=== PATIENT | male | born 1960 | race Caucasian/White ===

== ENCOUNTER 2020-05-17 17:11 | Emergency (ER) | payer MEDICARE ==
[~2020-05-17 17:11] MED LIST: CLEOCIN HCL300 MG PO
[2020-05-17 18:49] LABS: HEMOGLOBIN 17.8 gm/dl (14.0-17.5); RED BLOOD COUNT 5.45 M/UL (4.20-5.50); WHITE BLOOD COUNT 8.5 K/UL (4.5-11.0)
[2020-05-17 19:08] LABS: BUN/CREATININE RATIO 26 (0-10)
[2020-05-18] MEDS ORDERED: BACTRIM DS TAB1 EACH PO (00:55)
[2020-05-18] MEDS ORDERED: CEPHALEXIN500 MG PO (00:55)
[2020-06-11] MEDS ORDERED: LASIX40 MG PO (12:45)
[2020-06-11] MEDS ORDERED: BACTRIM DS TAB1 EACH PO (12:46)
== END 2020-05-18 01:12 | disposition home or self-care (01) ==
LOC: ER1 17:11
PROVIDERS: Physician Assistant
DX: L03.314 Cellulitis of groin (principal); M79.3 Panniculitis, unspecified; E11.9 Type 2 diabetes mellitus without complications; E78.5 Hyperlipidemia, unspecified; J44.9 Chronic obstructive pulmonary disease, unspecified; I10 Essential (primary) hypertension; I48.91 Unspecified atrial fibrillation; F17.210 Nicotine dependence, cigarettes, uncomplicated
CPT/HCPCS: 71046; 80053; 83880; 85025; 96365; 99284; J0696; Q9967

== ENCOUNTER 2020-06-14 21:45 | Inpatient (IN) | payer MEDICARE ==
[~2020-06-14] VITALS: Ht 190.5 cm; Wt 181.4 kg
[~2020-06-14 21:45] MED LIST changes: +BACTRIM DS TAB1 EACH PO; +CEPHALEXIN500 MG PO; +LASIX40 MG PO
[2020-06-15 00:24] LABS: HEMOGLOBIN 17.9 gm/dl (14.0-17.5); RED BLOOD COUNT 5.55 M/UL (4.20-5.50); WHITE BLOOD COUNT 8.3 K/UL (4.5-11.0)
[2020-06-15 00:43] LABS: BUN/CREATININE RATIO 21 (0-10)
[2020-06-15] MEDS ORDERED: HYDROCHLOROTHIA50 MG PO (12:44)
[2020-06-15] MEDS ORDERED: LOPRESSOR 50 MG50 MG PO (12:45)
[2020-06-15] MEDS ORDERED: ELIQUIS 5 MG TAB5 MG PO (12:45)
[2020-06-15] MEDS ORDERED: XANAX1 MG PO (12:46)
[2020-06-15] MEDS ORDERED: GLUCOTROL 10 MG10 MG PO (12:47)
[2020-06-15] MEDS ORDERED: GLUCOPHAGE1000 MG PO (12:48)
[2020-06-15] MEDS ORDERED: BUPRENORPHIN-N1 EACH PO (12:48)
[2020-06-15] MEDS ORDERED: DIGOXIN125 MCG PO (12:49)
[2020-06-15] MEDS ORDERED: CYMBALTA60 MG PO (12:50)
[2020-06-15] MEDS ORDERED: AMMONIUM LACTA140 GM TOP (13:04)
[2020-06-15] MEDS ORDERED: NEURONTIN400 MG PO (13:04)
[2020-06-16 08:59] LABS: HEMOGLOBIN 17.1 gm/dl (14.0-17.5); RED BLOOD COUNT 5.69 M/UL (4.20-5.50); WHITE BLOOD COUNT 8.1 K/UL (4.5-11.0)
[2020-06-16 09:31] LABS: BUN/CREATININE RATIO 23 (0-10)
[2020-06-17 06:35] LABS: HEMOGLOBIN 17.1 gm/dl (14.0-17.5); RED BLOOD COUNT 5.4 M/UL (4.20-5.50); WHITE BLOOD COUNT 6.6 K/UL (4.5-11.0)
[2020-06-17 07:00] LABS: BUN/CREATININE RATIO 23 (0-10)
[2020-06-18 05:10] LABS: BUN/CREATININE RATIO 25 (0-10)
[2020-06-19 04:43] LABS: HEMOGLOBIN 16.3 gm/dl (14.0-17.5); RED BLOOD COUNT 5.12 M/UL (4.20-5.50); WHITE BLOOD COUNT 6.2 K/UL (4.5-11.0)
[2020-06-19 04:56] LABS: BUN/CREATININE RATIO 28 (0-10)
[2020-06-19] MEDS ORDERED: LASIX40 MG PO (12:19)
[2020-06-19] MEDS ORDERED: ACETAZOLAMIDE250 MG PO (12:19)
[2020-06-19] MEDS ORDERED: BACTRIM DS TAB1 EACH PO (12:23)
[2020-06-19] MEDS ORDERED: MYCOSTATIN CREA15 GM TOP (12:23)
[2020-06-19] MEDS ORDERED: AUGMENTIN 875-1 EACH PO (12:23)
[2020-06-19] MEDS ORDERED: LANTUS INS100 UTS/M1 SC (13:04)
== END 2020-06-19 15:02 | disposition home or self-care (01) | DRG 314 ==
LOC: ER1 21:45 → CDU 06-15 04:47 → MED SURG 4 06-15 05:54 → CDU 06-15 05:54 → MED SURG 4 06-15 16:16
PROVIDERS: Internal Medicine; Physician Assistant; ADMIT Internal Medicine
PROC: B24BZZ4 Ultrasonography of Heart with Aorta, Transesophageal (ICD-10-PCS; principal; 2020-06-15)
DX: I27.20 Pulmonary hypertension, unspecified (principal); J18.9 Pneumonia, unspecified organism; I50.33 Acute on chronic diastolic (congestive) heart failure; E87.3 Alkalosis; F11.20 Opioid dependence, uncomplicated; Z68.43 Body mass index [BMI] 50.0-59.9, adult; Z20.822 Contact with and (suspected) exposure to COVID-19; E11.628 Type 2 diabetes mellitus with other skin complications; G89.29 Other chronic pain; J44.9 Chronic obstructive pulmonary disease, unspecified; I08.3 Combined rheumatic disorders of mitral, aortic and tricuspid valves; M19.90 Unspecified osteoarthritis, unspecified site; F41.9 Anxiety disorder, unspecified; E66.2 Morbid (severe) obesity with alveolar hypoventilation; F17.210 Nicotine dependence, cigarettes, uncomplicated; I48.0 Paroxysmal atrial fibrillation; F32.9 Major depressive disorder, single episode, unspecified; N49.2 Inflammatory disorders of scrotum; Z79.4 Long term (current) use of insulin; Z79.01 Long term (current) use of anticoagulants; Z82.49 Family history of ischemic heart disease and other diseases of the circulatory system; Z83.3 Family history of diabetes mellitus; Z83.6 Family history of other diseases of the respiratory system; Z88.6 Allergy status to analgesic agent
CPT/HCPCS: ECHO; 36415; 71046; 76870; 80048; 80053; 80202; 81001; 82962; 83735; 83880; 85025; 85027; 93005; 93306; 93970; 94760; 96374; 99285; J0692; J1940; J3370; J7050; U0002

== ENCOUNTER → 2020-06-21 | Outpatient (CLI) | payer MEDICARE ==
[~2020-06-21] MED LIST changes: +ACETAZOLAMIDE250 MG PO; +AMMONIUM LACTA140 GM TOP; +AUGMENTIN 875-1 EACH PO; +BUPRENORPHIN-N1 EACH PO; +CYMBALTA60 MG PO; +DIGOXIN125 MCG PO; +ELIQUIS 5 MG TAB5 MG PO; +GLUCOPHAGE1000 MG PO; +GLUCOTROL 10 MG10 MG PO; +HYDROCHLOROTHIA50 MG PO; +LANTUS INS100 UTS/M1 SC; +LOPRESSOR 50 MG50 MG PO; +MYCOSTATIN CREA15 GM TOP; +NEURONTIN400 MG PO; +XANAX1 MG PO
[2020-06-21 22:58] LABS: BUN/CREATININE RATIO 21 (0-10)
== END ==
LOC: LAB 22:25
PROVIDERS: Internal Medicine
DX: E87.6 Hypokalemia (principal); I50.31 Acute diastolic (congestive) heart failure
CPT/HCPCS: 80048

== ENCOUNTER 2021-02-23 23:50 | Emergency (ER) | payer MEDICARE ==
[2021-02-24 01:40] LABS: HEMOGLOBIN 15.5 gm/dl (14.0-17.5); RED BLOOD COUNT 4.79 M/UL (4.20-5.50); WHITE BLOOD COUNT 7.2 K/UL (4.5-11.0)
[2021-02-24 01:59] LABS: BUN/CREATININE RATIO 30 (0-10)
[2021-02-24] MEDS ORDERED: BACTROBAN OINT22 GM EXT (02:50)
[2021-02-24] MEDS ORDERED: CEPHALEXIN500 M1 PO (02:50)
== END 2021-02-24 03:10 | disposition home or self-care (01) ==
LOC: ER1 23:50
PROVIDERS: Physician Assistant Medical
DX: E11.622 Type 2 diabetes mellitus with other skin ulcer (principal); L97.829 Non-pressure chronic ulcer of other part of left lower leg with unspecified severity; I48.91 Unspecified atrial fibrillation; E11.9 Type 2 diabetes mellitus without complications; I10 Essential (primary) hypertension; F17.210 Nicotine dependence, cigarettes, uncomplicated; Z88.5 Allergy status to narcotic agent
CPT/HCPCS: 80053; 82962; 85025; 87070; 87077; 87186; 87205; 99283

== ENCOUNTER 2021-09-19 18:58 | Emergency (ER) | payer MEDICARE ==
[~2021-09-19 18:58] MED LIST changes: +BACTROBAN OINT22 GM EXT; +CEPHALEXIN500 M1 PO
== END 2021-09-19 19:52 | disposition home or self-care (01) ==
LOC: ER1 18:58
DX: S91.012A Laceration without foreign body, left ankle, initial encounter (principal); F17.210 Nicotine dependence, cigarettes, uncomplicated; I48.91 Unspecified atrial fibrillation; I50.9 Heart failure, unspecified; E11.9 Type 2 diabetes mellitus without complications; Z88.5 Allergy status to narcotic agent; W22.8XXA Striking against or struck by other objects, initial encounter; Y92.89 Other specified places as the place of occurrence of the external cause; Y99.0 Civilian activity done for income or pay
CPT/HCPCS: 12002; 90471; 90715; 99282